=== PATIENT | male | born 1950 ===

== ENCOUNTER 2019-11-20 07:16 | Outpatient (CLI) | payer OTHER | END 2019-11-20 07:19 | disposition home or self-care (01) | LOC: SONOGRAMA 07:16 | DX: K76.0 Fatty (change of) liver, not elsewhere classified (principal) ==

== ENCOUNTER 2022-01-13 08:31 | Outpatient (CLI) | payer OTHER | END 2022-01-13 08:40 | disposition home or self-care (01) | LOC: TOM 08:31 | PROVIDERS: ATTEND Specialist | DX: K57.90 Diverticulosis of intestine, part unspecified, without perforation or abscess without bleeding (principal) ==

== ENCOUNTER 2022-01-28 09:37 | Outpatient (CLI) | payer OTHER | END 2022-01-28 09:58 | disposition home or self-care (01) | LOC: LAB 09:37 | DX: U07.1 COVID-19 (principal); B34.1 Enterovirus infection, unspecified ==

== ENCOUNTER 2022-01-29 07:21 | Outpatient (CLI) | payer OTHER | END 2022-01-29 07:23 | disposition home or self-care (01) | LOC: NUCLEAR 07:21 | PROVIDERS: ATTEND Internal Medicine Cardiovascular Disease | DX: I20.9 Angina pectoris, unspecified (principal) ==

== ENCOUNTER → 2022-11-25 06:33 | Outpatient (CLI) | payer OTHER | END | disposition home or self-care (01) | LOC: LAB 06:33 | PROVIDERS: ATTEND Family Medicine | DX: B34.2 Coronavirus infection, unspecified (principal); A49.3 Mycoplasma infection, unspecified site; J10.01 Influenza due to other identified influenza virus with the same other identified influenza virus pneumonia; Z20.828 Contact with and (suspected) exposure to other viral communicable diseases; N39.8 Other specified disorders of urinary system; I10 Essential (primary) hypertension; D64.9 Anemia, unspecified; Z12.5 Encounter for screening for malignant neoplasm of prostate; E78.2 Mixed hyperlipidemia; E03.9 Hypothyroidism, unspecified; E56.8 Deficiency of other vitamins; J20.9 Acute bronchitis, unspecified ==

== ENCOUNTER 2025-05-15 07:13 | Outpatient (CLI) | payer OTHER | END 2025-05-15 07:15 | disposition home or self-care (01) | LOC: SONOGRAMA 07:13 | DX: K74.69 Other cirrhosis of liver (principal) ==